=== PATIENT | female | born 1965 | race African-American/Black ===

== ENCOUNTER 2017-10-11 12:17 | Emergency (ER) | payer OTHER ==
[~2017-10-11] VITALS: Ht 165.1 cm; Wt 81.7 kg
[~2017-10-11 12:17] MED LIST: ACETAMINOPHEN-120 ML PO; ASPIRIN325 PO; ASPIRIN81 M2 PO; ATIVAN1 MG PO; CELEXA40 MG PO; DARVOCET-N 1001 EAC1 PO; FLEXERIL PO; GLUCOPHAGE XR500 MG PO; GLUCOPHAGE500 MG PO; IBUPROFEN 400400 M1 PO; LISINOPRIL40 MG PO; MAG-OX 400 TAB400 M1 PO; MEDROLDOSEPACK PO; NORCO 5-325 TA1 EACH PO; NORFLEX100 MG PO; PERCOCET 5-3251 EACH PO; PRINIVIL40 MG PO; PROPANOLOL; PROPRANOLOL 20M20 M1 PO; ROBAXIN 750 MG750 M1 PO; ULTRAM 50MG TAB50 MG PO; VENTOLIN HFA INH8 GM IH; XANAX 0.5 MG0.5 MG PO; ZPAK PO; [UNRECOGNIZED DRUG - OTHER]
[2017-10-11] MEDS ORDERED: NORCO 5-325 TA1 EACH PO (12:55)
[2017-10-11] MEDS ORDERED: VALIUM5 MG PO (13:30)
== END 2017-10-11 14:08 | disposition home or self-care (01) ==
LOC: ER 12:17
DX: S16.1XXA Strain of muscle, fascia and tendon at neck level, initial encounter (principal); S39.012A Strain of muscle, fascia and tendon of lower back, initial encounter; I10 Essential (primary) hypertension; E11.9 Type 2 diabetes mellitus without complications; Z88.5 Allergy status to narcotic agent; V89.2XXA Person injured in unspecified motor-vehicle accident, traffic, initial encounter; Y93.I9 Activity, other involving external motion; Y92.89 Other specified places as the place of occurrence of the external cause; Y99.8 Other external cause status